=== PATIENT | male | born 1955 | race Caucasian/White ===

== ENCOUNTER 2025-02-19 10:58 | Observation (INO) ==
--- NOTE | 2025-02-14 12:25 | Anesthesiology Consultation ---
Date of Service February 14, 2025 Assessment & Plan (1) Encounter for pre-operative examination: - Per pharmacy informaticist on 02/11/25: No known infectious disease contacts, current infectious disease symptoms in past 10 days or COVID positive test result in the past 30 days. Chart Review Chart Review: Acceptable Risk for Surgery and Patient NOT seen in Pre Admission Testing History Surgery Operation Date: 02/19/25 10:40 Proposed Procedures p TURP (Transurethral Resection of Prostate) - Mark Rangel MD Height/Weight Height: 5 ft 11 in Weight: 77.111 kg Allergies Allergy/AdvReac Type Severity Reaction Status Date / Time No Known Allergies Allergy Verified 02/11/25 14:57 Medications Home Medications Medication Instructions Recorded Confirmed Last Taken tamsulosin 0.4 mg capsule 0.4 mg PO HS #30 caps 10/30/24 02/11/25 Unknown losartan 50 mg tablet 100 mg PO QAM 01/21/25 02/11/25 Unknown aspirin 81 mg capsule 81 mg PO DAILY 02/11/25 02/11/25 Unknown ferrous sulfate 325 mg (65 mg 325 mg PO DAILY 02/11/25 02/11/25 Unknown iron) tablet (iron) multivitamin 1 tab PO QAM 02/11/25 02/11/25 Unknown amoxicillin 500 mg-potassium 1 tab PO BID 10 days #20 tabs 02/12/25 Unknown clavulanate 125 mg tablet (Augmentin) Past Medical History Medical History (Updated 02/14/25 @ 12:20 by Anita Tello PA-C) BPH (benign prostatic hyperplasia) History of COVID-19 (2022) resolved History of skin cancer removed from back HTN (hypertension) Hx of migraines no issues in years Mild anemia Urinary retention Past Family History Family History Father Prostate cancer Heart disease Nephrolithiasis Brother Colorectal cancer Mother Breast cancer Past Surgical History Surgical History H/O vasectomy History of wisdom tooth extraction, class I edentulism Hx of colonoscopy Social History Smoking Status: Never smoker Do You Dip or Chew Tobacco: No Hx Alcohol Use: Yes alcohol intake frequency: a few times a week Hx Substance Use: No substance use type: does not use Testing Laboratory Results 02/07/25 WBC: 8.1 H/H: 13/41 PLATELETS: 288,000 SODIUM: 140 POTASSIUM: 4.7 CHLORIDE: 108 CO2: 31 BUN: 18 CREATININE: 1.2 Urine culture: > 100,000 cfu/ml E coli Electrocardiogram Date: 02/07/25 Sinus rhythm, rate 67 bpm Nonspecific T wave abnormality Chest X-Ray Date: 02/07/25 No acute cardiopulmonary disease.
[2025-02-19] MEDS: LR 15ML/HR IV SCH (11:19)
[2025-02-19] MEDS ORDERED: LIDOCAINE 2% 2 ML VIAL/AMP(20MG/ML) INFIL ONE (11:54)
[2025-02-19] MEDS ORDERED: PROPOFOL IV EMULSION 10 MG/ML 20 ML VIAL IV ONE (11:54)
[2025-02-19] MEDS ORDERED: HYDROmorphone INJ 2 MG/ML SYR/VIAL IV PRN (12:52)
[2025-02-19] MEDS ORDERED: ONDANSETRON INJ 2 MG/ML 2 ML VIAL IV PRN (12:52)
[2025-02-19] MEDS ORDERED: PROMETHAZINE HCL 6.25 MG in SODIUM CHLORIDE 0.9% 50 ML IV PRN (12:52)
[2025-02-19] MEDS ORDERED: ATROPINE SULFATE 0.1 MG/ML 10ML SYR IV PRN (12:52)
--- NOTE | 2025-02-19 13:54 | History & Physical Bridge Note ---
Date of Service February 19, 2025 History & Physical Bridge Note I have examined the patient, reviewed the History & Physical and in the interval since the performance of the History & Physical I have noted the following changes of clinical significance: no changes noted
[2025-02-19] MEDS: CIPROFLOXACIN / D5W 400 MG/200 ML BAG IV SCH (14:13)
[2025-02-19] MEDS ORDERED: ONDANSETRON INJ 2 MG/ML 2 ML VIAL ONE (14:25)
[2025-02-19] MEDS ORDERED: DEXAMETHASONE SOD INJ 4 MG/ML VIAL ONE (14:25)
--- NOTE | 2025-02-19 15:17 | Operative Report ---
PG Post Operative Report Pre & Post Diagnosis Operation Date: 02/19/25 12:20 Pre-Op Diagnosis: Retention of Urine, BPH Post-Op Diagnosis: Retention of Urine, BPH I identified the patient and participated in the time-out.: Yes Procedure Operation Date: 02/19/25 12:20 Actual Procedures p Transurethral Resection of Prostate(Not Applicable) - Mark Rangel MD Surgeon Mark Rangel MD Window Clerk none Estimated Blood Loss 0 Findings Consistent with Post-Op Diagnosis Specimens Prostate chips Description of Procedure The patient was identified in the preoperative holding area, appropriate informed consents were reviewed and completed and the patient was transferred to the operative suite. Upon arrival, appropriate antibiotics and anesthesia were administered and the patient was placed in dorsal lithotomy position and prepped and draped in sterile fashion. To begin the case, I passed a 26 [place] cystoscope with 30 degree lens and visual obturator. Inspection revealed a healthy appearing urethra and a moderately enlarged prostate with substantial lateral lobe obstruction and some intravesical intrusion. He has a heavily trabeculated bladder without mucosal abnormality. Following my inspection I exchanged the visual obturator for a resecting element, choosing a loop electrode. I began by resecting the intravesical component of the prostate by incising at 5 and 7:00 and utilizing care to avoid encroachment upon the ureters. I then resected the left lateral lobe followed by the right lateral lobe, some anterior tissue and ultimately the apical tissue. After irrigating all chips out of the bladder obtain meticulous hemostasis and then inserted a 22 [place] 30 cc [place] catheter and inflated the balloon fully to 30 cc. He was reversed of anesthesia and taken to the recovery room in stable condition. The chips were passed off the table for pathology and he will be kept overnight for observation with a plan voiding trial tomorrow morning I attest to the content of the Intraoperative Record and any orders documented therein. Any exceptions are noted below.
--- NOTE | 2025-02-19 15:44 | Anesthesiology Progress Note ---
Date of Service February 19, 2025 Anesthesia Post Procedure Vital Signs Vital Signs: Temp Pulse Pulse Resp BP Pulse Ox O2 Del Method 02/19/25 15:35 65 16 142/83 H 96 Room Air 02/19/25 15:25 66 15 140/81 96 Room Air 02/19/25 15:17 36.3 C L 71 20 152/75 H 99 Room Air 02/19/25 11:33 36.7 C 70 16 178/99 H 97 Room Air Transfer of Care Handoff Completed per policy Notes Mental Status: alert / awake / arousable Patient Amnestic to Procedure: Yes Nausea / Vomiting: adequately controlled Pain: adequately controlled Airway Patency, RR, SpO2: stable & adequate BP & HR: stable & adequate Hydration State: stable & adequate Anesthetic Complications: no major complications apparent
[2025-02-19] MEDS: SODIUM CHLORIDE 0.9% 500 ML IV SCH (17:00)
[2025-02-19] MEDS: AMOXICILLIN/CLAVULANATE 500 MG TAB PO SCH (19:35)
[2025-02-19] MEDS: ACETAMINOPHEN 325 MG TAB PO PRN (19:35)
[2025-02-20 06:56] LABS: Hematocrit (blood only) 39.3 % (42.0-52.0); Hemoglobin 13.5 g/dl (14.0-18.0); Immature Granulocytes # (auto) 0.04 K/uL (0.01-0.20); Immature Granulocytes % (auto) 0.4 %; Mean Corpuscular Hemoglobin 30.3 pg (25.0-34.0); Mean Corpuscular Volume 88.3 fL (80.0-100.0); Platelet Count 292 K/uL (130-400); RDW Standard Deviation 40.2 fL (36.4-46.3); Red Blood Count 4.45 M/uL (4.70-6.10); White Blood Count 9.90 K/ul (4.8-10.8)
[2025-02-20 07:19] LABS: Anion Gap 6.0 (3-11); Blood Urea Nitrogen 15.0 mg/dl (6-23); Calcium 8.6 mg/dl (8.6-10.3); Carbon Dioxide 26.0 mmol/L (21-32); Chloride 106.0 mmol/L (98-107); Creatinine Clr Calc Pharmacy 67.6 ml/min; Glucose 109.0 mg/dl (70-99(Fasting)); Potassium 3.9 mmol/L (3.5-5.1); Sodium 138.0 mmol/L (136-145)
--- NOTE | 2025-02-20 08:15 | Urology Progress Note ---
Date of Service February 20, 2025 Assessment & Plan (1) Benign prostatic hyperplasia (BPH) with straining on urination: (2) Urinary retention: Plan Postop day #1 status post TURP Doing well Remove catheter today, he has had a catheter for sometimes if he is unable to void we will replace and trial void again later this week but I am optimistic Discharge home after catheter removal He does already have Augmentin at home which she can continue after discharge Admission and Anticipated Discharge Date Admission Date: February 19, 2025 Subjective Postop day #1 status post TURP No major issues overnight Urine is relatively clear A few small clots Otherwise no major issues Labs all appropriate this morning Physical Exam Physical Exam: Urine predominantly clear without clot or 2 in the tubing Results & Data Vital Signs (Past 12 Hours) Vital Signs Temp Pulse Resp BP Pulse Ox O2 Del Method 02/20/25 07:44 36.6 C 75 15 161/89 H 95 Room Air 02/20/25 03:20 36.6 C 82 18 140/84 96 Room Air 02/19/25 23:01 36.8 C 72 16 137/79 95 Room Air PG Care Time/CCT Total # of Minutes Spent Total Time Spent with Patient: Total time spent is greater than 50% in coordination of care (as documented) at patient's floor/unit and/or counseling patient: Coding Level of Care Code None Diagnoses Benign prostatic hyperplasia (BPH) with straining on urination N40.1; R39.16 Urinary retention R33.9
[2025-02-20] MEDS: LOSARTAN POTASSIUM 50 MG TAB PO SCH (08:40)
--- NOTE | 2025-02-20 16:09 | Discharge Summary ---
Date of Service February 20, 2025 Admission HPI Per Admitting Provider 69-year-old male with a history of BPH with urinary retention who presented for transurethral resection of the prostate with Dr. Rangel Admission Exam Per Admitting Provider No apparent distress No respiratory distress Regular rate rhythm Abdomen soft, moving all extremities No rashes Catheter in place Principal Diagnosis Urinary retention, BPH Discharge Exam Constitutional well developed and well nourished; no acute distress Respiratory normal respiratory effort; no respiratory distress and no labored breathing Musculoskeletal Head/Neck/Chest: normocephalic Skin no rashes, warm and dry Neurologic moves all extremities and awake Psychiatric A+Ox3, euthymic affect Discharge Data Allergies Allergy/AdvReac Type Severity Reaction Status Date / Time No Known Allergies Allergy Verified 02/11/25 14:57 Procedures Performed Operation Date: 02/19/25 12:20 Actual Procedures p Transurethral Resection of Prostate(Not Applicable) - Mark Rangel MD Hospital Course (1) Urinary retention: (2) Benign prostatic hyperplasia (BPH) with straining on urination: Plan 69-year-old male admitted status post transurethral resection of the prostate. Patient tolerated procedure well. No acute issues postoperatively. He remained afebrile and hemodynamically stable. Labs showing no leukocytosis, hemoglobin 13.5 and normal renal function. Patient passed a voiding trial on postop day #1. He was subsequently discharged home on postop day #1. He was in stable condition at time of discharge. Discharge instructions were reviewed and all questions were answered. Postop follow-up appointment in place. Total Time Total Time Spent Total Time Spent (In Minutes): 15 Discharge Plan Discharge Items Patient Disposition: Home - Self-Care Reason For Visit: Retention of Urine, Unspecified, Benign Prostatic Discharge Diagnosis: Retention of urine; BPH Activity: Per Instructions section Non-emergency contact: Surgeon and Urologist Call non-emergency contact if: you have any medication questions, your symptoms worsen, your pain is not controlled and you have a fever Follow-up/Referrals: Bimal Rossi PA-C [Physician Writer] - 03/11/25 9:00 am Manny Genao DO [Primary Care Provider] - Diet: Regular Addtl Attending Provider Instructions: Please take all medications as prescribed and keep all follow-ups as scheduled. Please call our office at [phone] with any questions, concerns or need to reschedule appointments for any reason. We are happy to assist you. Continue antibiotic as previously prescribed Tips for your recovery at home: Dont be alarmed by brownish or reddish blood or clots in your urine. This is a result of the procedure. This may occur off and on for weeks to months after the procedure but should continue to improve. Drink plenty of fluids during the day (enough to keep your urine very light colored). This will help keep a healthy flow of urine. Do not lift >25 lbs until your followup Avoid constipation. Please use a stool softener (Colace) for the first two weeks after your procedure Be sure to finish the antibiotics as prescribed. When to call [facility] at [phone]: Your urine contains heavy blood clots or you are unable to urinate You are constantly leaking urine Fever of 101F or higher, chills, nausea, or vomiting Your pain is not relieved with medication Pending Studies at Discharge: Yes Stand-Alone Forms: My [facility], Smoking Cessation Medications and DC Order Prescriptions: Continued tamsulosin 0.4 mg capsule 0.4 mg PO HS Qty: 30 5RF amoxicillin-pot clavulanate [Augmentin] 500-125 mg tablet 1 tab PO BID 10 Days Qty: 20 0RF losartan 50 mg tablet 100 mg PO QAM multivitamin Tablet 1 tab PO QAM ferrous sulfate [iron] 325 mg (65 mg iron) Tablet 325 mg PO DAILY aspirin 81 mg Capsule 81 mg PO DAILY Discharge Orders: Discharge Order (Routine); Ordered 02/20/25 Ordered By: Pura Strickland/Other Patient Handouts: Bladder Bowel Care Post Op Admission Data Admit Date/Time: 02/19/25 15:13 Attending Provider: Mark Rangel Admit Provider: Mark Rangel Primary Care Provider: Manny Genao Other Interventions: Discharge Summary Assessment (RN) Last Done: 02/20/25 12:40 Coding Level of Care Code 48935 IN/OBS DISCH 30 MIN/LESS Diagnoses Urinary retention R33.9 Benign prostatic hyperplasia (BPH) with straining on urination N40.1; R39.16
== END 2025-02-20 13:26 | disposition home or self-care (01) ==
LOC: 3W 10:58 → ASU 10:58 → PACUINP 10:58 → 3W 16:30